=== PATIENT | female | born 1985 | race Caucasian/White ===

== ENCOUNTER 2019-09-16 12:02 | Outpatient (RCR) | payer MEDICAID, SELFPAY | END 2019-12-15 23:59 | disposition home or self-care (01) | LOC: ANHLAB 12:02 | PROVIDERS: PCP Family Medicine; Visit Provider Obstetrics & Gynecology | DX: O03.9 Complete or unspecified spontaneous abortion without complication (principal) | CPT/HCPCS: 36415; 84702; 86900; 86901 ==

== ENCOUNTER 2020-03-25 22:44 | Emergency (ER) | payer OTHER, SELFPAY ==
--- NOTE | ~2020-03-25 | XR_ITS ---
EXAMINATION: XR chest 2V DATE: 03/25/2020 23:22 INDICATION: Chest pain and cough TECHNIQUE: PA and lateral views of the chest are obtained. COMPARISON: 11/22/2014 FINDINGS: The lungs are free of acute opacities. There is no pleural effusion or pneumothorax. The ca rdiomediastinal silhouette is normal. There is mild thoracic spondylosis. Bilateral breast implants a re noted. IMPRESSION: 1. No acute cardiopulmonary abnormality. Reviewed, dictated and finalized at location A.
[2020-03-25 22:47] VITALS: BP 134/79; PULSE 79; RESP 17; TEMP 36.4; O2SAT 100
--- NOTE | 2020-03-25 22:50 | ECG_ITS ---
Measurements Intervals [place] Rate: 66 P: 66 LA: 142 QRS: 65 QRSD: 92 T: 56 QT: 375 QTc: 395 Interpretive Statements SINUS RHYTHM NORMAL ECG Electronically Signed On 03-26-2020 7:27:07 CDT by Mason Steinberg D.O.
[2020-03-25 23:09] LABS: Basophils Percent Auto 0.2 % (0.2-1.2); Eosinophils Absolute Auto 0.3 K/mm3 (0-0.3); Eosinophils Percent Auto 1.9 % (0-4.4); Hematocrit 43.6 % (37.0-47.0); Hemoglobin 14.7 g/dL (12.0-15.0); Immature Granulocyte Absolute 0.05 K/mm3 (0.00-0.031); Immature Granulocyte Percent A 0.4 % (0-0.5); Immature Platelet Fraction Pct 19.2 % (0.9-11.2); Lymphocytes Absolute Auto 3.12 K/mm3 (0.9-3.2); Lymphocytes Percent Auto 22.4 % (18.3-44.2); Mean Corpuscular HGB Conc 33.7 g/dl (32-36); Mean Platelet Volume 13.4 fl (7.4-10.4); Monocytes Absolute Auto 0.8 K/mm3 (0.1-0.6); Monocytes Percent Auto 5.9 % (2.6-8.5); Neutrophils Absolute Auto 9.7 K/mm3 (1.3-6.7); Neutrophils Percent Auto 69.2 % (45.5-73.1); Platelet Count Result 137 k/mm3 (150-375); Red Blood Count 4.59 M/mm3 (4.2-5.4); Red Cell Distribution Width 14.1 % (11.5-14.5); White Blood Count 13.9 K/mm3 (4.5-10.0)
[2020-03-25 23:19] LABS: Anion Gap 9 mmol/L (8-16); Blood Urea Nitrogen 14 mg/dL (7-17); Calcium 9.3 mg/dL (8.4-10.2); Carbon Dioxide 25 mmol/L (22-30); Chloride 107 mmol/L (98-107); Estimated CRCL calculation 77 ml/min; Estimated Glomerular Filt Rate > 60; Glucose 105 mg/dL (65-105); INR 1.1; Potassium 3.8 mmol/L (3.4-5.0); Sodium 141 mmol/L (137-145)
[2020-03-25 23:20] LABS: Partial Thromboplastin Time 32.1 SECONDS (22.3-36.8)
[2020-03-25 23:31] LABS: Troponin I < 0.012 ng/mL (0.000-0.034)
--- NOTE | 2020-03-26 00:02 | ED.GENADULT ---
HPI - General Adult General Chief complaint: Chest Pain Stated complaint: Chest pain, Shortness of breath Time Seen by Provider: 03/25/20 23:54 Source: patient Mode of arrival: ambulatory Limitations: no limitations History of Present Illness HPI narrative: Patient is a 35-year-old female who presents to emergency department for evaluation of patient states she is chest pain cough fatigue that began today patient denies sick contacts patient notes that she feels like she has pneumonia or bronchitis. Patient presents per private vehicle in no distress did take ibuprofen with improvement Related Data Allergies Allergy/AdvReac Type Severity Reaction Status Date / Time No Known Allergies Allergy Verified 03/10/20 08:51 Review of Systems Review of Systems: All systems reviewed & are unremarkable except as noted in HPI and below PMFSH Past Medical History Medical History (Updated 03/26/20 @ 00:04 by Fei Silverman PA-C) Hypomania Right foot pain Surgical History Surgical History (Updated 03/26/20 @ 00:03 by Fei Silverman PA-C) H/O breast augmentation Social History Social History Smoking status: Smoker, status unknown Alcohol intake: current Exam Narrative: Exam Narrative: GENERAL: Well-appearing, well-nourished, and in no acute distress. HEAD: Normocephalic, atraumatic. EYES: PERRLA and EOMI. ENT: Nares clear, no rhinorrhea or epistaxis. Mucous membranes moist. CHEST: Clear to auscultation. No respiratory distress. No wheezes rales or rhonchi HEART: Regular rate and rhythm. No murmur heard. EXTREMITIES: Normal range of motion. No edema. SKIN: Warm, dry, no rash. NEURO: No focal deficits. Alert and oriented x3. PSYCH: Normal mood and affect. Course Course Emergency Course: Patient in the room at this time in no distress no high risk changes in the blood work or imaging will be discharged home advised to self quarantine until she has received her COVID-19 results patient agrees with this plan no high risk changes in the vital signs no hypoxemia specifically Vital Signs Vital signs: Vital Signs Temperature 97.6 F 03/25/20 22:47 Pulse Rate 79 03/25/20 22:47 Respiratory Rate 17 03/25/20 22:47 Blood Pressure 134/79 03/25/20 22:47 Pulse Oximetry 100 03/25/20 22:47 Temperature 97.6 F 03/25/20 22:47 Pulse Rate 79 03/25/20 22:47 Respiratory Rate 17 03/25/20 22:47 Blood Pressure 134/79 03/25/20 22:47 Pulse Oximetry 100 03/25/20 22:47 Medical Decision Making MDM Narrative Medical decision making narrative: Patient will be swabbed for COVID felt appropriate for discharge home no distress early in the course of the illness no other concerns at this time patient resting comfortably felt appropriate for discharge home Vital Signs Vital Signs: Vital Signs Temperature 97.6 F 03/25/20 22:47 Pulse Rate 79 03/25/20 22:47 Respiratory Rate 17 03/25/20 22:47 Blood Pressure 134/79 03/25/20 22:47 Pulse Oximetry 100 03/25/20 22:47 Temperature 97.6 F 03/25/20 22:47 Pulse Rate 79 03/25/20 22:47 Respiratory Rate 17 03/25/20 22:47 Blood Pressure 134/79 03/25/20 22:47 Pulse Oximetry 100 03/25/20 22:47 Lab Data Result diagrams: 03/25/20 22:58 03/25/20 22:58 Labs: Lab Results 03/25/20 03/25/20 03/25/20 Range/Units 22:58 22:58 22:58 WBC 13.9 H (4.5-10.0) K/mm3 RBC 4.59 (4.2-5.4) M/mm3 Hgb 14.7 (12.0-15.0) g/dL Hct 43.6 (37.0-47.0) % MCV 95.0 (80-100) fl MCH 32.0 (26-34) pg MCHC 33.7 (32-36) g/dl RDW 14.1 (11.5-14.5) % Plt Count 137 L (150-375) k/mm3 MPV 13.4 H (7.4-10.4) fl Immature Gran % (Auto) 0.4 (0-0.5) % Neut % (Auto) 69.2 (45.5-73.1) % Lymph % (Auto) 22.4 (18.3-44.2) % [place] % (Auto) 5.9 (2.6-8.5) % Eos % (Auto) 1.9 (0-4.4) % Baso % (Auto) 0.2 (0.2-1.2) % L
[2020-03-26 00:13] VITALS: O2SAT 97
[2020-03-26 00:17] VITALS: BP 114/61; PULSE 77; RESP 17; O2SAT 97
[2020-03-26 00:20] VITALS: PULSE 78
[2020-03-26 14:03] LABS: SARS-CoV-2 RNA PCR Negative
== END 2020-03-26 00:20 | disposition home or self-care (01) ==
PROVIDERS: Emergency Medicine Emergency Medical Services; Emergency Provider Emergency Medicine; PCP Family Medicine
DX: J06.9 Acute upper respiratory infection, unspecified (principal)
CPT/HCPCS: 36415; 71046; 80048; 84484; 85025; 85055; 85610; 85730; 87635; 93005; 99284; C9803; U0003

== ENCOUNTER 2022-01-08 21:17 | Emergency (ER) | payer OTHER, SELFPAY ==
--- NOTE | ~2022-01-08 | XR_ITS ---
XR wrist LT 2V 01/08/2022 21:53 Indication: Left wrist pain Procedure: 3 views left wrist Comparison: No prior studies for comparison. Findings: No fracture, subluxation or dislocation. 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 No significant soft tissue abnormality. Impression: 1: No acute fracture. Reviewed, dictated and finalized at location A. Impression: 1: No acute fracture.
--- NOTE | ~2022-01-08 | XR_ITS ---
XR elbow LT 2V 01/08/2022 21:53 Indication: Left elbow deformity. Procedure: 2 views left elbow Comparison: 09/21/2006 Findings: There is dislocation of the elbow posteriorly. There is a small linear ossific density ngozi cent to the proximal ulna, suspicious for avulsion fracture. There is a joint effusion. Impression: 1: Posterior dislocation of the elbow with possible avulsion fracture adjacent to the proximal ulna. Reviewed, dictated and finalized at location A. Impression: 1: Posterior dislocation of the elbow with possible avulsion fracture adjacent to the proximal ulna.
--- NOTE | ~2022-01-08 | XR_ITS ---
XR elbow LT 2V 01/08/2022 21:53 Indication: Left elbow deformity. Procedure: 2 views left elbow Comparison: 09/21/2006 Findings: There is dislocation of the elbow posteriorly. There is a small linear ossific density ngozi cent to the proximal ulna, suspicious for avulsion fracture. There is a joint effusion. Impression: 1: Posterior dislocation of the elbow with possible avulsion fracture adjacent to the proximal ulna. Reviewed, dictated and finalized at location A. Impression: 1: Posterior dislocation of the elbow with possible avulsion fracture adjacent to the proximal ulna.
[2022-01-08 21:25] VITALS: BP 133/89; PULSE 105; RESP 16; TEMP 37; O2SAT 98
--- NOTE | 2022-01-08 21:41 | ED.GENADULT ---
HPI - General Adult General Chief complaint: Extremity Injury, Upper Stated complaint: Left arm injury Time Seen by Provider: 01/08/22 21:28 History of Present Illness HPI narrative: 36-year-old female presenting to the emergency department for evaluation of left elbow pain. Patient states she attempted to jump off a boat and injured her left elbow. Patient does admit to alcohol intoxication. Patient states the injury happened about 3:00. Patient denies striking her head denies any loss of consciousness. Patient denies any other pain or injury Related Data Home Medications Medication Instructions Recorded Confirmed alprazolam 0.5 mg tablet 0.5 mg PO TID PRN 11/10/20 11/10/20 Allergies Allergy/AdvReac Type Severity Reaction Status Date / Time No Known Allergies Allergy Verified 01/08/22 21:44 Review of Systems Review of Systems: CONSTITUTIONAL: Denies fever, chills, or sweats. EYES: Denies visual changes, redness, or discharge. ENT: Denies rhinorrhea, congestion, sore throat, or otalgia. CARDIOVASCULAR: Denies chest pain, palpitations, or edema. RESPIRATORY: Denies cough or dyspnea. GASTROINTESTINAL: Denies abdominal pain, nausea, vomiting, or diarrhea. GENITOURINARY: Denies dysuria or hematuria. SKIN: Denies rash or itching. MUSCULOSKELETAL: Left elbow pain NEUROLOGIC: Denies headache, numbness, or weakness. PSYCHIATRIC: Denies anxiety or depression. [facility] Past Medical History Medical History Hypomania Right foot pain Surgical History Surgical History H/O breast augmentation Family History Family History Mother Family history of emphysema Family history of lung cancer Father Carcinoma of colon Other Diabetes mellitus Family history of cardiovascular disease Family history of malignant neoplasm Social History Social History Smoking status: Current every day smoker Alcohol intake: current Exam Narrative: APPEARANCE: Well appearing, heavily intoxicated HEAD: normocephalic, atraumatic. EYES: PERRLA/EOMI, conjunctivae clear. NOSE: Normal no drainage NECK: Supple. No adenopathy, no masses. RESPIRATORY: Airway patent, respirations nonlabored. Clear to auscultation bilaterally, no rales, rhonchi, wheezing. CARDIOVASCULAR: Regular rate and rhythm without murmurs rubs or gallops. ABDOMINAL: Soft, nontender, nondistended, normal bowel sounds MUSCULOSKELETAL: Moves all extremities. Left elbow deformity, anatomical position improved reduction. NEURO: Alert. Cranial nerves II through XII intact. Good gait. Good coordination. Neurovascularly intact SKIN: Warm, dry. Normal Color Course Course Emergency Course: Patient felt improved after reduction of the left elbow. Patient was advised results of her x-rays and plan for treatment for home. Patient was provided a sling for comfort and encouraged to have close follow-up with orthopedics. Vital Signs Vital signs: Vital Signs Temperature 98.6 F 01/08/22 21:25 Pulse Rate 105 H 01/08/22 21:25 Respiratory Rate 16 01/08/22 21:25 Blood Pressure 133/89 01/08/22 21:25 Pulse Oximetry 98 01/08/22 21:25 Temperature 98.6 F 01/08/22 21:25 Pulse Rate 105 H 01/08/22 21:25 Respiratory Rate 16 01/08/22 21:25 Blood Pressure 133/89 01/08/22 21:25 Pulse Oximetry 98 01/08/22 21:25 Procedures Orthopedic Joint Reduction Joint #1: Time Out Performed: Yes Side: left Joint Reduction Location: elbow Analgesia: none Pre-Procedure Neuro Vascular Exam: normal Technique used: traction/counter-traction Post-reduction neuro exam: intact Post-reduction vascular: intact Post Reduction X-Ray Obtained: Yes Post Reduction X-Ray Results: reduced Patient
== END 2022-01-08 22:18 | disposition home or self-care (01) ==
PROVIDERS: Emergency Provider Emergency Medicine
DX: S53.125A Posterior dislocation of left ulnohumeral joint, initial encounter (principal); F17.200 Nicotine dependence, unspecified, uncomplicated; W16.712A Jumping or diving from boat striking water surface causing other injury, initial encounter
CPT/HCPCS: 24600; 73070; 73100; 99285; A4565